=== PATIENT | male | born 1955 | race Caucasian/White ===

== ENCOUNTER 2019-10-11 22:20 | Emergency (ER) | payer BC ==
[2019-10-11] MEDS ORDERED: XARELTO20 MG PO (23:00)
[2019-10-11] MEDS ORDERED: PROAIR HFA0.09 MG/AC IH (23:01)
[2019-10-11] MEDS ORDERED: ATORVASTATIN CA10 MG PO (23:01)
[2019-10-11] MEDS ORDERED: POTASSIUM CHLO10 ME8 PO (23:01)
[2019-10-11] MEDS ORDERED: HYDROCHLOROTHIA50 M1 PO (23:01)
[2019-10-11 23:03] LABS: BASO # 0.1 (0.02-0.10); EOS # 0.2 (0.04-0.40); HEMATOCRIT 42.7 % (42.0-52.0); HEMOGLOBIN 14.6 g/dL (13.5-18.0); LYMPH# 1.6 (1.50-4.00); MEAN CELL VOLUME 92 fl (78-100); MEAN CORPUSCULAR HEMOGLOBIN 32 pg (27-31); MEAN CORPUSCULAR HGB CONC 34 g/dL (33-37); MEAN PLATELET VOLUME 9.4 fl (7.4-10.4); MONO # 0.4 (0.20-0.80); NEU # 5.3 (1.40-6.50); PLATELET COUNT 311 K/mm3 (130-400); RED BLOOD COUNT 4.62 M/mm3 (4.20-5.60); RED CELL DISTRIBUTION WIDTH 13.4 % (11.5-14.5); WHITE BLOOD COUNT 7.6 K/mm3 (4.8-10.8)
[2019-10-11 23:33] VITALS: BP 133/74
== END 2019-10-11 23:35 | disposition home or self-care (01) ==
LOC: ED 22:20
PROVIDERS: Family Medicine
DX: K11.21 Acute sialoadenitis (principal); I10 Essential (primary) hypertension; Z86.73 Personal history of transient ischemic attack (TIA), and cerebral infarction without residual deficits

== ENCOUNTER 2019-10-14 16:08 | Emergency (ER) | payer BC ==
[~2019-10-14 16:08] MED LIST: ATORVASTATIN CA10 MG PO; HYDROCHLOROTHIA50 M1 PO; POTASSIUM CHLO10 ME8 PO; PROAIR HFA0.09 MG/AC IH; XARELTO20 MG PO
[2019-10-14 17:01] VITALS: BP 133/83
== END 2019-10-14 17:01 | disposition home or self-care (01) ==
LOC: ED 16:08
DX: S60.221A Contusion of right hand, initial encounter (principal); I10 Essential (primary) hypertension; E78.5 Hyperlipidemia, unspecified; Z79.01 Long term (current) use of anticoagulants; Z86.73 Personal history of transient ischemic attack (TIA), and cerebral infarction without residual deficits; W23.1XXA Caught, crushed, jammed, or pinched between stationary objects, initial encounter; Y92.009 Unspecified place in unspecified non-institutional (private) residence as the place of occurrence of the external cause

== ENCOUNTER → 2023-09-30 | Outpatient (CLI) | payer OTHER, BC | LOC: RAD 15:21 | DX: M25.561 Pain in right knee (principal) ==

== ENCOUNTER → 2023-11-12 | Outpatient (CLI) | payer OTHER ==
[2023-11-12 14:12] LABS: HEMATOCRIT 43.8 % (42.0-52.0); HEMOGLOBIN 14.3 g/dL (13.5-18.0); RED BLOOD COUNT 4.52 M/mm3 (4.20-5.60); RED CELL DISTRIBUTION WIDTH 13.4 % (11.5-14.5); WHITE BLOOD COUNT 5.3 K/mm3 (4.8-10.8)
[2023-11-12 14:33] LABS: ALBUMIN 4.1 g/dL (3.4-4.8); URINE APPEARANCE CLEAR (CLEAR); URINE BILIRUBIN NEGATIVE (NEGATIVE); URINE BLOOD NEGATIVE (NEGATIVE); URINE COLOR YELLOW (YELLOW); URINE GLUCOSE NEGATIVE (NEGATIVE); URINE KETONE NEGATIVE (NEGATIVE); URINE LEUKOCYTE ESTERASE NEGATIVE (NEGATIVE); URINE NITRATE NEGATIVE (NEGATIVE); URINE PROTEIN(semi-quant) NEGATIVE (NEGATIVE)
[2023-11-12 14:36] LABS: TOTAL PROTEIN 6.7 g/dL (6.2-8.1); URINE WBC 0-1 /hpf (0-3)
[2023-11-12 14:38] LABS: TOTAL BILIRUBIN 0.6 mg/dL (0.2-1.2)
== END ==
LOC: LAB 13:45
PROVIDERS: Orthopaedic Surgery
DX: Z01.818 Encounter for other preprocedural examination (principal)

== ENCOUNTER 2024-04-19 10:01 | Emergency (ER) | payer BC ==
[~2024-04-19] VITALS: Ht 182.9 cm; Wt 105.1 kg
[2024-04-19] MEDS ORDERED: METFORMIN ER500 MG (10:17)
[2024-04-19] MEDS ORDERED: LOSARTAN POTASS50 M1 PO (10:17)
[2024-04-19] MEDS ORDERED: FINASTERIDE5 M1 PO (10:18)
[2024-04-19] MEDS ORDERED: Acetaminophen 500 MG TAB PO ONE (10:45)
[2024-04-19] MEDS ORDERED: NS 1,000 ML IV SCH (10:45)
[2024-04-19] MEDS ORDERED: Ondansetron 4 MG/2 ML VIAL IV ONE (11:00)
[2024-04-19] MEDS ORDERED: TAMIFLU 75MG75 MG PO (11:10)
[2024-04-19 12:02] VITALS: BP 128/74
== END 2024-04-19 12:04 | disposition home or self-care (01) ==
LOC: ED 10:01
DX: J10.1 Influenza due to other identified influenza virus with other respiratory manifestations (principal)
CPT/HCPCS: J2405; J7030